=== PATIENT | male | born 1990 | race Caucasian/White ===

== ENCOUNTER 2017-09-26 12:33 | Emergency (ER) ==
[2017-09-26 12:38] VITALS: BP 126/74; TEMP 98.1; BMI 25.7
--- NOTE | 2017-09-26 13:03 | DI ---
EXAM: LEFT FOOT, 3 VIEWS HISTORY: Foot injury, pain FINDINGS: There is a nondisplaced transverse acute fracture across the base of the fifth metatarsal located approximately 1.2 cm distal to the posterior tip of the bone. This probably extends into the most medial articular surface. The joint remains intact. The bone and joint structures of the foot were otherwise unremarkable. IMPRESSION: Fifth metatarsal fracture.
[2017-09-26] MEDS ORDERED: MORPHINE 2 MG/ML SYRINGE IVP STA (13:12)
[2017-09-26] MEDS ORDERED: PHENERGAN 25 MG/ML VIAL IM STA (13:13)
--- NOTE | 2017-09-26 13:16 | ED.PDOC ---
General ED Provider: Dr. BRITNEY FRANK-ER Chief Complaint: Foot Pain/Injury Stated Complaint: i hurt my foot Time Seen by Physician: 12:40 Mode of Arrival: Wheelchair Information Source: Patient Exam Limitations: No limitations Primary Care Provider: CHONG KELLY Nursing and Triage Documentation Reviewed and Agree: Yes Musculoskeletal Complaint Exam - Ankle/Foot Complaint/Exam Location of Injury: Reports: Left, Foot Mechanism of Injury: Reports: Trauma Onset/Duration: 24 hrs Symptoms Are: Reports: Still present Onset of Pain: Reports: Immediate Initial Severity: Mild Current Severity: Moderate Location: Reports: Discrete Character: Reports: Dull, Aching, Stiffness Aggravating: Reports: Movement, Weight bearing, Prolonged standing Able to Bear Weight: No Associated Signs and Symptoms: Reports: Swelling, Bruising. Denies: Redness, Fever, Weakness, Numbness, Tingling Related History: Reports: Similar episode Lower Extremity Findings: Present: Swelling, Ecchymosis, Tenderness, Limited range of motion Achilles Tendon Abnormality: No Tenderness: Present: Midfoot, Metatarsals Differential Diagnosis: Contusion, Closed Fracture Review of Systems - Review Of Systems Constitutional: Reports: No symptoms Eyes: Reports: No symptoms Ears, Nose, Mouth, Throat: Reports: No symptoms Respiratory: Reports: No symptoms Cardiac: Reports: No symptoms GI: Reports: No symptoms : Reports: No symptoms Musculoskeletal: Reports: Muscle pain Skin: Reports: No symptoms Neurological: Reports: No symptoms Endocrine: Reports: No symptoms Hematologic/Lymphatic: Reports: No symptoms All Other Systems: Reviewed and Negative Past Medical History - Past Medical History Previously Healthy: Yes Endocrine: Reports: Unknown Cardiovascular: Reports: Unknown Respiratory: Reports: Unknown Hematological: Reports: Unknown Gastrointestinal: Reports: Unknown Genitourinary: Reports: Unknown Neuro/Psych: Reports: Unknown Musculoskeletal: Reports: Unknown Cancer: Reports: Unknown - Surgical History General Surgical History: Reports: Unknown - Family History Family History: Reports: Unknown - Social History Smoking Status: Current every day smoker Hx Substance Use: No Alcohol Screening: Occasionally - Immunizations Tetanus Shot up to Date: Yes Physical Exam - Physical Exam Appearance: Well-appearing, No pain distress, Well-nourished Pain Distress: Moderate Eyes: TRISTA, EOMI, Conjunctiva clear ENT: Ears normal, Nose normal, Oropharynx normal Neck: Supple Respiratory: Airway patent, Breath sounds clear, Breath sounds equal, Respirations nonlabored Cardiovascular: RRR GI/: Soft, Nontender, No masses, Bowel sounds normal, No Organomegaly Musculoskeletal: Limited ROM Skin: Warm Neurological: Sensation intact Psychiatric: Affect appropriate Interpretation - Radiology Interpretation Radiology Interpretation By: Radiologist Radiology Results: Negative Critical Care Note - Critical Care Note Total Time (mins): 0 Course - Course Orders, Labs, Meds: Orders Category Date Time Status CRUTCHES [ED CRUTCHES] .ONCE EMERGENCY 09/26/17 13:13 Active ED JAMIE WRAP .ONCE EMERGENCY 09/26/17 13:13 Active ED SPLINT APPLICATION .ONCE EMERGENCY 09/26/17 13:13 Active Morphine Sulfate [Morphine 2 mg/ml Syringe] MEDS 09/26/17 13:12 Discontinued 2 mg IVP ONCE STA Promethazine HCl [Phenergan 25 mg/ml Vial] MEDS 09/26/17 13:13 Discontinued 25 mg IM ONCE STA FOOT, LEFT 3 VIEWS Stat RADS 09/26/17 12:41 Completed Medications Generic Name Dose Route Start Last Admin Trade Name Freq PRN Reason Stop Dose Admin Morphine Sulfate 2 mg 09/26/17 13:12 Morphine 2 Mg/Ml Syringe IVP 09/26/17 13:13 ONCE STA Promethazine HCl 25 mg 09/26/17 13:13 Phenergan 25 Mg/Ml Vial IM 09/26/17 13:14 ONCE STA Vital Signs: Temp Pulse Resp BP Pulse Ox 09/26/17 12:34 98.1 F 111 H 18 126/74 96 Departure - Departure Time of Disposition: 13:16 Disposition: HOME SELF-CARE Discharge Problem: Metatarsal fracture Qualifiers: Encounter type: initial encounter Metatarsal bone: fifth Fracture type: closed Fracture alignment: nondisplaced Laterality: left Qualified Code(s): S92.355A - Nondisplaced fracture of fifth metatarsal bone, left foot, initial encounter for closed fracture Discharge Problem: (Ruled Out): Fracture of fifth metacarpal bone Instructions: Foot Fracture in Adults (ED) Condition: Good Pt referred to PMD for follow-up: Yes Additional Instructions: stay in jamie, cast shoe and crutches---norco 7.5mg q 4hrs prn pain #15--f/u ortho [facility] thursday--nonweightbearing Allergies/Adverse Reactions: Allergies No Known Allergies Allergy (Unverified 09/26/17 12:38) Home Medications: Ambulatory Orders Amlodipine Besylate 5 mg PO DAILY 09/26/17 Venlafaxine HCl [Effexor] 75 mg PO DAILY 09/26/17 Disposition Discussed With: Patient, Family
== END 2017-09-26 13:58 | disposition home or self-care (01) ==
LOC: ED 12:33
DX: S92.355A Nondisplaced fracture of fifth metatarsal bone, left foot, initial encounter for closed fracture (principal); F17.210 Nicotine dependence, cigarettes, uncomplicated
CPT/HCPCS: 96372; 99282

== ENCOUNTER 2022-04-28 10:26 | Inpatient (IN) ==
[2022-04-28] MEDS ORDERED: ATIVAN IVP STA (10:45)
[2022-04-28] MEDS ORDERED: ZOFRAN 4 MG/2 ML IVP STA (10:45)
[2022-04-28] MEDS ORDERED: SODIUM CHLORIDE 1,000 ML IV STA ×2 (10:45→13:36)
--- NOTE | 2022-04-28 10:45 | ED.PDOC ---
General ED Provider: Dr. AMBREEN MENDOZA MD Chief Complaint: Nausea/Vomiting Stated Complaint: Patient with a history of alcohol use disorder. He reports that he currently drinks once a week. He last drank two days ago and consumed one fifth of vodka. Patient subsequently developed nausea and emesis. He presents now with tremulousness. He also complains of bilateral leg pain related to a recent ground level fall. Denies fever, chills, cough, dyspnea, chest pain, abdominal pain, melena, constipation, diarrhea or hematochezia. Patient's mother reports that he drinks alcohol daily and that he has nausea and emesis on a daily basis. Time Seen by Provider: 04/28/22 10:44 Mode of Arrival: Ambulance Information Source: Patient and EMT Primary Care Provider: GINA TRACY MD Nursing and Triage Documentation Reviewed and Agree: Yes Does patient meet sepsis criteria?: No System Inflammatory Response Syndrome: Not Applicable Sepsis Protocol: For patient's 13 years and over: Temp is 96.8 and below OR 101 and greater Pulse >90 BPM Resp >20/minute Acutely Altered Mental Status Are patient's symptoms suggestive of a new infection, such as: -Pneumonia -Skin, Soft Tissue -Endocarditis -UTI -Bone, Joint Infection -Implantable Device -Acute Abdominal Infection -Wound Infection -Meningitis -Blood Stream Catheter Infection -Unknown Miscellaneous Complaint Exam Complex/Multi-System Complaint/Exam Onset/Duration: 1-2 days nausea, emesis and tremulousness Symptoms Are: Still present Initial Severity: Mild Current Severity: Mild Aggravating: none Alleviating: none Associated Signs and Symptoms: Reports Nausea and Vomiting Respiratory Distress: None JVD Present: No Tachypnea Present: No Stridor Present: No Abdominal Findings: Present Normal findings Meningeal Signs Positive: No Focal Weakness: Present None Focal Sensory Loss: Present None Gait: Unsteady Gag Reflex Present: Yes Joint Swelling Present: No In-Dwelling Device Present: No Review of Systems Review Of Systems Constitutional: Reports No symptoms Eyes: Reports No symptoms Ears, Nose, Mouth, Throat: Reports No symptoms Respiratory: Reports No symptoms Cardiac: Reports No symptoms GI: Reports Nausea and Vomiting : Reports No symptoms Skin: Reports No symptoms Neurological: Reports Other (tremulousness) Endocrine: Reports No symptoms Hematologic/Lymphatic: Reports No symptoms All Other Systems: Reviewed and Negative [facility] Medical History Anemia Elevated liver enzymes Hypertension Insomnia Family History PATERNAL GRANDFATHER Heart disease Hypertension Heart attack BROTHER Depression BROTHER Depression MATERNAL GRANDMOTHER Depression Mother Depression Social History Smoking and tobacco status: Current every day smoker Tobacco type: cigarettes Smoking packs per day: 0.5 Years smoked: 13 Quit status: has quit before Alcohol intake: current Alcohol intake frequency: holidays/special occasions only Substance use type: does not use Counseling given: No Counseling provided: none Linda/alevism: NONE Special linda needs: No Agree to transfusion: Yes Adopted: No Caregiver/support person: No Foster care: No Household members: none and other Housing: apartment Marital status: S SINGLE Daycare: no daycare Number of children: 0 Number of grandchildren: 0 Highest education level completed: some college, no degree Financial difficulty paying for basics: not very hard service: Yes [facility]: No Current occupational status: previously employed Current occupational exposures/hazards: No Previous occupational history: cook [employer] Pets and animals: No Leisure activites: exercise and games History of recent travel: Yes (moved back here from [place] ) Sexually active: Yes Do you think of yourself as: straight/heterosexual Current gender identity: male Seatbelt use: always Helmet use: No Drives intoxicated or rides with intoxicated auto parts delivery driver: No Water heater temperature set < 120 degrees: Yes Working smoke detector in home: Yes Fire extinguisher in home: No Carbon monoxide detector in home: No Firearms in home: No Physical Exam Physical Exam Appearance: Reports Ill-appearing, No pain distress, Thin and Other (Patient unkempt and appears to be chronically ill. He does exhibit some tremulousness of both hands.) Ill-appearing: Mild Pain Distress: None Eyes: Reports TRISTA and EOMI ENT: Reports Nose normal and Oropharynx normal Neck: Supple Respiratory: Reports Airway patent, Breath sounds clear and Breath sounds equal Cardiovascular: Reports RRR, No rub and No murmur GI/: Reports Soft, Nontender, No masses and Bowel sounds normal Musculoskeletal: Reports Normal strength, ROM intact, No edema and Other (ecchymotic area right pretibial area) Skin: Reports Warm, Dry and Normal color Neurological: Reports Sensation intact, Motor intact, Cranial nerves intact, Alert and Oriented Psychiatric: Reports Affect appropriate and Mood appropriate Interpretation Radiology Interpretation Radiology Interpretation By: Radiologist Exam Interpreted: CT Scan (CT head with no acute intracranial abnormality) Re-Evaluation Re-Evaluation Time of Re-Evaluation: 12:29 Status: Improved (Patient feeling much better. He is tolerating PO fluids) Vital Signs Stable: Yes Pain Level: none Appearance: NAD Critical Care Note Critical Care Note Total Critical Care Time (mins): 0 Course Course Hematology/Chemistry: 04/28/22 10:59 04/28/22 10:59 Orders, Labs, Meds: Lab Review 04/28/22 04/28/22 10:59 10:59 WBC 4.59 RBC 3.39 L Hgb 11.7 L Hct 34.3 L MCV 101.2 H MCH 34.5 H MCHC 34.1 RDW Coeff of Venessa 14.0 Plt Count 103 L Immature Gran % (Auto) 0.2 Neut % (Auto) 84.5 H Lymph % (Auto) 7.4 L Ashley % (Auto) 6.8 Eos % (Auto) 0.4 Baso % (Auto) 0.7 Neut # (Auto) 3.9 Lymph # (Auto) 0.3 L Ashley # (Auto) 0.3 L Eos # (Auto) 0.0 Baso # (Auto) 0.0 Immature Gran # (Auto) 0.0 Sodium 130.5 L Potassium 3.67 Chloride 94.9 L Carbon Dioxide 17.8 L Anion Gap 21.47 BUN 4.9 L Creatinine 0.68 Estimated GFR (MDRD) 137.00 BUN/Creatinine Ratio 7.20 Glucose 106.2 H Calcium 8.86 Total Bilirubin 1.52 H AST 100.1 H ALT 55.2 H Alkaline Phosphatase 87.2 Total Protein 7.25 Albumin 4.65 Globulin 2.60 Albumin/Globulin Ratio 1.78 Plasma/Serum Alcohol < 10.0 Orders Category Date Time Status Saline Lock [ED IV/MEDIPORT/POWERPORT] .ONCE EMERGENCY 04/28/22 10:45 Active ALCOHOL LEVEL [BLOOD ALCOHOL] Stat LAB 04/28/22 10:59 Completed CBC W/ AUTO DIFF Stat LAB 04/28/22 10:59 Completed CMP [COMPREHENSIVE METABOLIC PANEL] Stat LAB 04/28/22 10:59 Completed URINE DRUG SCREEN (RAPID FOR ED) [DRUG SCREEN, URINE, LAB 04/28/22 10:47 Uncollected RAPID] Stat 0.9 % Sodium Chloride [Saline Flush] MEDS 04/28/22 10:45 Active 1 syr IVF PRN PRN Lorazepam [Ativan] MEDS 04/28/22 10:45 Discontinued 2 mg IVP ONCE STA Ondansetron HCl/Pf [Zofran 4 mg/2 ml] MEDS 04/28/22 10:45 Discontinued 8 mg IVP ONCE STA Sodium Chloride 0.9% [Sodium Chloride] 1,000 ml MEDS 04/28/22 10:[address] HEAD W/O CONTRAST Stat RADS 04/28/22 10:45 Completed Medications Generic Name Dose Route Start Last Admin Trade Name Freq PRN Reason Stop Dose Admin Sodium Chloride 1 syr 04/28/22 10:45 04/28/22 11:00 0.9% Sodium Chloride 10 Ml Disp.Syrin IVF 1 syr PRN PRN Administration To flush IV Discontinued Medications Generic Name Dose Route Start Last Admin Trade Name Freq PRN Reason Stop Dose Admin Sodium Chloride 1,000 mls @ 1,000 mls/hr 04/28/22 10:45 04/28/22 11:00 Sodium Chloride IV 04/28/22 11:44 1,000 mls/hr BOLUS STA Administration Lorazepam 2 mg 04/28/22 10:45 04/28/22 11:00 Lorazepam Inj 2 Mg/Ml Vial IVP 04/28/22 10:46 2 mg ONCE STA Administration Ondansetron HCl 8 mg 04/28/22 10:45 04/28/22 10:56 Ondansetron Hcl/Pf 4 Mg/2 Ml Sdv IVP 04/28/22 10:46 Not Given ONCE STA Vital Signs: Temp Pulse Resp BP Pulse Ox 04/28/22 10:26 98.1 F 83 20 141/99 H 99 Discharge Plan Discharge Patient Disposition: HOME SELF-CARE Discharge Problem: Alcohol use disorder, severe, dependence, Nausea & vomiting Instructions: Abuse of Alcohol (ED), Acute Nausea and Vomiting (ED), Alcohol Withdrawal (ED) Prescriptions: New ondansetron 4 mg tablet,disintegrating 4 mg PO Q8H Qty: 21 0RF No Action amlodipine 10 mg tablet See Rx Instructions .ROUTE .COMPLEX Qty: 30 2RF Dose Instruction: TAKE ONE TABLET DAILY GENERIC FOR NORVASC Rx Instructions: TAKE ONE TABLET DAILY GENERIC FOR NORVASC multivitamin [Multiple Vitamins] Tablet 1 tab PO QDAY 0RF cholecalciferol (vitamin D3) 1,250 mcg (50,000 unit) capsule 50,000 unit PO QWEEK Qty: 10 0RF thiamine HCl (vitamin B1) 100 mg tablet 100 mg PO QDAY Qty: 30 6RF ibuprofen 600 mg tablet 600 mg PO TID PRN (Reason: fever or pain) Qty: 90 1RF acamprosate 333 mg tablet,delayed release (DR/EC) 666 mg PO BID Qty: 120 0RF Rx Instructions: administer with mid-day and evening meals benztropine 1 mg tablet 1 mg PO QHS Qty: 30 0RF quetiapine 100 mg tablet 50 - 100 mg PO QHS Qty: 30 0RF venlafaxine 75 mg capsule,extended release 24hr 75 mg PO QAM Qty: 30 0RF trazodone 150 mg tablet 50 - 150 mg PO QHS PRN (Reason: insomnia) Qty: 30 0RF hydroxyzine HCl 25 mg tablet 25 mg PO TID PRN (Reason: anxiety) Qty: 90 0RF ED Provider: AMBREEN MENDOZA Condition: Stable Physician Progress Note: []
[2022-04-28 11:10] LABS: BASOPHILS % (AUTO) 0.7 % (0.0-3.0); EOSINOPHILS % (AUTO) 0.4 % (0.0-7.0); HEMATOCRIT 34.3 % (42.0-52.0); HEMOGLOBIN 11.7 g/dl (14.0-18.0); IMMATURE GRANULOCYTE % (AUTO) 0.2 % (0.0-5.0); LYMPHOCYTES # (AUTO) 0.3 K/uL (0.60-3.4); LYMPHOCYTES % (AUTO) 7.4 (10.0-50.0); MEAN CORPUSCULAR HEMOGLOBIN 34.5 pg (27.0-31.0); MEAN CORPUSCULAR HGB CONC 34.1 (31.8-35.4); MEAN CORPUSCULAR VOLUME 101.2 fl (80.0-94.0); MONOCYTES # (AUTO) 0.3 K/uL (0.4-2.0); MONOCYTES % (AUTO) 6.8 (0-10); NEUTROPHILS # (AUTO) 3.9 K/ul (2.0-6.9); NEUTROPHILS % (AUTO) 84.5 % (42.2-75.2); PLATELET COUNT 103 10^3/uL (140-440); RED BLOOD COUNT 3.39 10^6/ul (4.70-6.10); WHITE BLOOD COUNT 4.59 K/ul (4.2-10.2)
[2022-04-28 11:23] LABS: ALANINE AMINOTRANSFERASE 55.2 U/L (0-50); ALBUMIN 4.65 g/dL (3.5-5.0); ALKALINE PHOSPHATASE 87.2 U/L (38-126); ASPARTATE AMINO TRANSFERASE 100.1 U/L (17-59); BILIRUBIN,TOTAL 1.52 mg/dL (0.2-1.3); BLOOD UREA NITROGEN 4.9 mg/dL (9-20); CALCIUM 8.86 mg/dL (8.4-10.2); CARBON DIOXIDE 17.8 mmol/L (22-30.0); CHLORIDE 94.9 mmol/L (98-107); CREATININE 0.68 mg/dL (0.60-1.10); GLUCOSE 106.2 mg/dL (74-106); POTASSIUM 3.67 mmol/L (3.5-5.1); SODIUM 130.5 mmol/L (134.5-145); TOTAL PROTEIN 7.25 g/dL (6.3-8.2)
[2022-04-28 11:24] LABS: BLOOD ALCOHOL < 10.0 mg/dL (0.0-50.0)
--- NOTE | 2022-04-28 12:01 | CT ---
EXAM: CT head without contrast. HISTORY: Altered mental status. COMPARISON: 04/10/2021. TECHNIQUE: Multiple axial images of the brain were obtained from the skull base through the vertex w ithout intravenous contrast. Multiplanar reformats were provided. FINDINGS: There is no intracranial hemorrhage or extraaxial collection. 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 The carrera-white differentiation i s maintained without evidence for acute large vascular territory infarction. The cortical sulci and basal cisterns are well visualized. There is no hydrocephalus, mass effect, or midline shift. Mild left maxillary sinus mucosal thickening. Otherwise, the paranasal sinuses and mastoid air cells are clear. The calvarium is intact. Since the prior study, there has been no significant interval herrera e. IMPRESSION: No acute intracranial abnormality. All CT scans are performed using dose optimization techniques as appropriate to the performed exam an d include at least one of the following: Automated exposure control, adjustment of the mA and/or kV according t o size, and the use of iterative reconstruction technique.
[2022-04-28] MEDS ORDERED: TYLENOL PO STA (13:49)
--- NOTE | 2022-04-28 15:13 | PCM ---
Chief Complaint Chief Complaint: weakness, tremulousness, nausea, emesis History of Present Illness History of Present Illness: Patient has alcohol use disorder and drinks alcohol daily. He last drank 2 days ago. Patient presents now with weakness, tremulousness, nausea and emesis. Denies fever, chills, cough, dyspnea, abdominal pain, melena, hematochezia, diarrhea, hematemesis or chest pain. Review of Systems Constitutional: Reports Weakness Eyes: Reports No symptoms Ears: Reports No symptoms Nose: Reports No symptoms Throat: Reports No symptoms Mouth: Reports No symptoms Respiratory: Reports No symptoms Cardiovascular: Reports No symptoms Gastrointestinal: Reports Nausea and Vomiting Genitourinary: Reports No symptoms Neurological: Reports Other (tremulousness) Musculoskeletal: Reports No symptoms Skin: Reports No symptoms Immunology: Reports No symptoms Hematology: Reports No symptoms Endocrine: Reports No symptoms Psychiatric: Reports No symptoms Habits: Reports Substance use and Alcohol use Allergies Allergies Allergy/AdvReac Type Severity Reaction Status Date / Time No Known Allergies Allergy unknown Uncoded 04/28/22 10:39 [facility] Medical History Anemia Elevated liver enzymes Hypertension Insomnia Family History PATERNAL GRANDFATHER Heart disease Hypertension Heart attack BROTHER Depression BROTHER Depression MATERNAL GRANDMOTHER Depression Mother Depression Social History Smoking and tobacco status: Current every day smoker Tobacco type: cigarettes Smoking packs per day: 0.5 Years smoked: 13 Quit status: has quit before Alcohol intake: current Alcohol intake frequency: holidays/special occasions only Substance use type: does not use Counseling given: No Counseling provided: none Linda/mosque: NONE Special linda needs: No Agree to transfusion: Yes Adopted: No Caregiver/support person: No Foster care: No Household members: none and other Housing: apartment Marital status: S SINGLE Daycare: no daycare Number of children: 0 Number of grandchildren: 0 Highest education level completed: some college, no degree Financial difficulty paying for basics: not very hard service: Yes penitentiary: No Current occupational status: previously employed Current occupational exposures/hazards: No Previous occupational history: cook at [employer] Pets and animals: No Leisure activites: exercise and games History of recent travel: Yes (moved back here from [place] ) Sexually active: Yes Do you think of yourself as: straight/heterosexual Current gender identity: male Seatbelt use: always Helmet use: No Drives intoxicated or rides with intoxicated driver education road instructor: No Water heater temperature set < 120 degrees: Yes Working smoke detector in home: Yes Fire extinguisher in home: No Carbon monoxide detector in home: No Firearms in home: No Medications Medications: Medications Generic Name Dose Route Start Last Admin Trade Name Freq PRN Reason Stop Dose Admin Amlodipine Besylate 10 mg 04/29/22 09:00 Amlodipine Besylate 5 Mg Tablet PO QAM PAM Chlordiazepoxide HCl 25 mg 04/28/22 15:00 Chlordiazepoxide Hcl 25 Mg Capsule PO Q6H PAM Sodium Chloride 1,000 mls @ 150 mls/hr 04/28/22 15:00 Sodium Chloride IV .Q6H40M PAM Lorazepam 1 mg 04/28/22 14:59 Lorazepam 1 Mg Tablet PO Q4H PRN Agitation Sodium Chloride 1 syr 04/28/22 10:45 04/28/22 11:00 0.9% Sodium Chloride 10 Ml Disp.Syrin IVF 1 syr PRN PRN Administration To flush IV Venlafaxine HCl 75 mg 04/29/22 09:00 Venlafaxine Hcl 75 Mg Cap.Er.24h PO DAILY PAM Body Composition Height: 5 ft 11 in Weight: 85.5 kg Body Mass Index (BMI): 26.2 Vital Signs Temperature: 98.1 F Pulse Rate: 83 Respiratory Rate: 20 Blood Pressure: 141/99 O2 Sat by Pulse Oximetry: 99 Physical Examination Appearance: Reports Ill-appearing, No pain distress, Thin and Other (Patient is unkempt. He is alert, but somewhat confused. Patient is tremulous. He is in NAD. ) Ill-appearing: Moderate Pain Distress: None Eyes: Reports EOMI and Conjunctiva clear ENT: Reports Nose normal and Oropharynx normal Neck: Supple Respiratory: Reports Airway patent, Breath sounds clear and Breath sounds equal Cardiovascular: Reports Pulses normal, No rub, No murmur and Tachycardia GI/: Reports Soft, Nontender, No masses, Bowel sounds normal and No Organomegaly Musculoskeletal: Reports Normal strength, ROM intact and No edema Skin: Reports Warm, Dry and Normal color Neurological: Reports Sensation intact, Motor intact, Cranial nerves intact, Alert and Oriented Psychiatric: Reports Affect appropriate and Mood appropriate Lab/Tests/Diagnostic Imaging Lab/Tests/Diagnostic Imaging: Lab Review 04/28/22 04/28/22 10:59 10:59 WBC 4.59 RBC 3.39 L Hgb 11.7 L Hct 34.3 L MCV 101.2 H MCH 34.5 H MCHC 34.1 RDW Coeff of Venessa 14.0 Plt Count 103 L Immature Gran % (Auto) 0.2 Neut % (Auto) 84.5 H Lymph % (Auto) 7.4 L [place] % (Auto) 6.8 Eos % (Auto) 0.4 Baso % (Auto) 0.7 Neut # (Auto) 3.9 Lymph # (Auto) 0.3 L [place] # (Auto) 0.3 L Eos # (Auto) 0.0 Baso # (Auto) 0.0 Immature Gran # (Auto) 0.0 Sodium 130.5 L Potassium 3.67 Chloride 94.9 L Carbon Dioxide 17.8 L Anion Gap 21.47 BUN 4.9 L Creatinine 0.68 Estimated GFR (MDRD) 137.00 BUN/Creatinine Ratio 7.20 Glucose 106.2 H Calcium 8.86 Total Bilirubin 1.52 H AST 100.1 H ALT 55.2 H Alkaline Phosphatase 87.2 Total Protein 7.25 Albumin 4.65 Globulin 2.60 Albumin/Globulin Ratio 1.78 Plasma/Serum Alcohol < 10.0 Orders Category Date Time Status PLACE PATIENT OBSERVATION .TO [facility] (MONITORED BED ADMISSION 04/28/22 14:59 Active ) ACTIVITY .Up With Assistance CARE 04/28/22 14:59 Active INTAKE & OUTPUT Q8HR CARE 04/28/22 14:59 Active IP: INSERT SALINE LOCK ONCE CARE 04/28/22 14:59 Active TELEMETRY MONITORING TELE CARE 04/28/22 14:59 Active VITAL SIGNS Q4HR CARE 04/28/22 15:00 Active VITAL SIGNS Q8HR CARE 04/28/22 14:59 Active REGULAR DIET DIETARY 04/28/22 Dinner Ordered Saline Lock [ED IV/MEDIPORT/POWERPORT] .ONCE EMERGENCY 04/28/22 10:45 Active ALCOHOL LEVEL [BLOOD ALCOHOL] Stat LAB 04/28/22 10:59 Completed CBC W/ AUTO DIFF DAILY@0600 LAB 04/29/22 06:00 Ordered CBC W/ AUTO DIFF DAILY@0600 LAB 04/30/22 06:00 Ordered CBC W/ AUTO DIFF Stat LAB 04/28/22 10:59 Completed CMP [COMPREHENSIVE METABOLIC PANEL] Stat LAB 04/28/22 10:59 Completed COMPREHENSIVE METABOLIC PANEL DAILY@0600 LAB 04/29/22 06:00 Ordered COMPREHENSIVE METABOLIC PANEL DAILY@0600 LAB 04/30/22 06:00 Ordered COVID [SARS COV-2 RNA RAPID GERA] Stat LAB 04/28/22 Ordered URINE DRUG SCREEN (RAPID FOR ED) [DRUG SCREEN, URINE, LAB 04/28/22 10:47 Uncollected RAPID] Stat 0.9 % Sodium Chloride [Saline Flush] MEDS 04/28/22 10:45 Active 1 syr IVF PRN PRN Acetaminophen [Tylenol] MEDS 04/28/22 13:49 Discontinued 1,000 mg PO ONCE STA Amlodipine Besylate [Norvasc] MEDS 04/29/22 09:00 Ordered 10 mg PO QAM Chlordiazepoxide HCl [Librium] MEDS 04/28/22 15:00 Ordered 25 mg PO Q6H Lorazepam [Ativan] MEDS 04/28/22 14:59 Ordered 1 mg PO Q4H PRN Lorazepam [Ativan] MEDS 04/28/22 10:45 Discontinued 2 mg IVP ONCE STA Ondansetron HCl/Pf [Zofran 4 mg/2 ml] MEDS 04/28/22 10:45 Discontinued 8 mg IVP ONCE STA Sodium Chloride 0.9% [Sodium Chloride] 1,000 ml MEDS 04/28/22 15:00 Ordered IV 150 mls/hr Sodium Chloride 0.9% [Sodium Chloride] 1,000 ml MEDS 04/28/22 10:45 Discontinued IV BOLUS Sodium Chloride 0.9% [Sodium Chloride] 1,000 ml MEDS 04/28/22 13:36 Discontinued IV BOLUS Venlafaxine HCl [Effexor Xr] MEDS 04/29/22 09:00 Ordered 75 mg PO DAILY RESUSCITATION STATUS Routine OTHERS 04/28/22 14:[address] HEAD W/O CONTRAST Stat RADS 04/28/22 10:45 Completed Medications Generic Name Dose Route Start Last Admin Trade Name Freq PRN Reason Stop Dose Admin Amlodipine Besylate 10 mg 04/29/22 09:00 Amlodipine Besylate 5 Mg Tablet PO QAM PAM Chlordiazepoxide HCl 25 mg 04/28/22 15:00 Chlordiazepoxide Hcl 25 Mg Capsule PO Q6H PAM Sodium Chloride 1,000 mls @ 150 mls/hr 04/28/22 15:00 Sodium Chloride IV .Q6H40M PAM Lorazepam 1 mg 04/28/22 14:59 Lorazepam 1 Mg Tablet PO Q4H PRN Agitation Sodium Chloride 1 syr 04/28/22 10:45 04/28/22 11:00 0.9% Sodium Chloride 10 Ml Disp.Syrin IVF 1 syr PRN PRN Administration To flush IV Venlafaxine HCl 75 mg 04/29/22 09:00 Venlafaxine Hcl 75 Mg Cap.Er.24h PO DAILY PAM Discontinued Medications Generic Name Dose Route Start Last Admin Trade Name Freq PRN Reason Stop Dose Admin Acetaminophen 1,000 mg 04/28/22 13:49 04/28/22 13:53 Acetaminophen 500 Mg Tablet PO 04/28/22 13:50 1,000 mg ONCE STA Administration Sodium Chloride 1,000 mls @ 1,000 mls/hr 04/28/22 10:45 04/28/22 11:00 Sodium Chloride IV 04/28/22 11:44 1,000 mls/hr BOLUS STA Administration Sodium Chloride 1,000 mls @ 1,000 mls/hr 04/28/22 13:36 04/28/22 13:44 Sodium Chloride IV 04/28/22 14:35 1,000 mls/hr BOLUS STA Administration Lorazepam 2 mg 04/28/22 10:45 04/28/22 11:00 Lorazepam Inj 2 Mg/Ml Vial IVP 04/28/22 10:46 2 mg ONCE STA Administration Ondansetron HCl 8 mg 04/28/22 10:45 04/28/22 10:56 Ondansetron Hcl/Pf 4 Mg/2 Ml Sdv IVP 04/28/22 10:46 Not Given ONCE STA Assessment (1) Alcohol use disorder, severe, dependence: Status: Acute Code(s): F10.20 - Alcohol dependence, uncomplicated SNOMED Code(s): 346589932 (2) Nausea & vomiting: Status: Acute Code(s): R11.2 - Nausea with vomiting, unspecified SNOMED Code(s): 37842969 (3) Alcohol withdrawal: Status: Acute Code(s): F10.239 - Alcohol dependence with withdrawal, unspecified SNOMED Code(s): 135241421 Plan Plan: Patient will receive IV fluid hydration and librium/ativan for withdrawal symptoms. Repeat labs will be drawn in the AM.
[2022-04-28] MEDS: SODIUM CHLORIDE 1,000 ML IV SCH (15:40)
[2022-04-28 17:14] VITALS: BMI 28.2
[2022-04-28 17:35] LABS: AMPHETAMINE SCREEN,URINE NEGATIVE (NEGATIVE); BARBITURATE SCREEN,URINE NEGATIVE (NEGATIVE); BENZODIAZEPINES SCREEN,URINE POSITIVE (NEGATIVE); CANNABINOID SCREEN,URINE NEGATIVE (NEGATIVE); COCAIN SCREEN,URINE NEGATIVE (NEGATIVE); METHADONE URINE SCREEN NEGATIVE (NEGATIVE); METHAMPHETAMINES SCREEN,URINE NEGATIVE (NEGATIVE); OPIATE SCREEN,URINE NEGATIVE (NEGATIVE); OXYCODONE URINE SCREEN NEGATIVE (NEGATIVE); PHENCYCLIDINE SCREEN,URINE NEGATIVE (NEGATIVE); PROPOXYPHENE URINE SCREEN NEGATIVE (NEGATIVE); TRICYCLIC ANTIDEPRESSANTS URIN NEGATIVE (NEGATIVE)
[2022-04-28] MEDS: LIBRIUM PO SCH ×2 (17:41→22:03)
[2022-04-28] MEDS: ATIVAN PO PRN (20:46)
[2022-04-28] MEDS: TYLENOL PO PRN (20:48)
[2022-04-29] MEDS: SODIUM CHLORIDE 1,000 ML IV SCH ×3 (00:30→22:42)
[2022-04-29] MEDS: LIBRIUM PO SCH ×4 (02:54→20:14)
[2022-04-29 05:13] LABS: BASOPHILS % (AUTO) 0.8 % (0.0-3.0); EOSINOPHILS # (AUTO) 0.1 K/ul (0.0-0.7); EOSINOPHILS % (AUTO) 2.3 % (0.0-7.0); HEMATOCRIT 29.9 % (42.0-52.0); HEMOGLOBIN 10.3 g/dl (14.0-18.0); IMMATURE GRANULOCYTE % (AUTO) 0.4 % (0.0-5.0); LYMPHOCYTES # (AUTO) 0.7 K/uL (0.60-3.4); LYMPHOCYTES % (AUTO) 26.8 (10.0-50.0); MEAN CORPUSCULAR HEMOGLOBIN 34.6 pg (27.0-31.0); MEAN CORPUSCULAR HGB CONC 34.4 (31.8-35.4); MEAN CORPUSCULAR VOLUME 100.3 fl (80.0-94.0); MONOCYTES # (AUTO) 0.3 K/uL (0.4-2.0); MONOCYTES % (AUTO) 11.1 (0-10); NEUTROPHILS # (AUTO) 1.5 K/ul (2.0-6.9); NEUTROPHILS % (AUTO) 58.6 % (42.2-75.2); PLATELET COUNT 73 10^3/uL (140-440); RDW COEFFICIENT OF VARIATION 13.7 % (11.6-14.8); RED BLOOD COUNT 2.98 10^6/ul (4.70-6.10); WHITE BLOOD COUNT 2.61 K/ul (4.2-10.2)
[2022-04-29 05:28] LABS: ALANINE AMINOTRANSFERASE 43.9 U/L (0-50); ALBUMIN 3.38 g/dL (3.5-5.0); ALKALINE PHOSPHATASE 65.2 U/L (38-126); ASPARTATE AMINO TRANSFERASE 112.5 U/L (17-59); BILIRUBIN,TOTAL 0.79 mg/dL (0.2-1.3); BLOOD UREA NITROGEN 2.3 mg/dL (9-20); CALCIUM 7.74 mg/dL (8.4-10.2); CHLORIDE 104.3 mmol/L (98-107); CREATININE 0.56 mg/dL (0.60-1.10); GLUCOSE 109.7 mg/dL (74-106); POTASSIUM 2.95 mmol/L (3.5-5.1); SODIUM 134.3 mmol/L (134.5-145); TOTAL PROTEIN 5.96 g/dL (6.3-8.2)
[2022-04-29] MEDS: EFFEXOR XR PO SCH (08:38)
[2022-04-29] MEDS: NORVASC PO SCH (08:39)
[2022-04-29] MEDS ORDERED: POTASSIUM CHLORIDE 20 MEQ/100 ML PREMIX 40 MEQ/200 ML BAG IV STA (09:20)
[2022-04-29] MEDS: ATIVAN PO PRN (10:53)
[2022-04-29] MEDS: K-DUR PO SCH ×2 (12:53→16:51)
[2022-04-29] MEDS: NICODERM 21 MG TD SCH (12:53)
[2022-04-29] MEDS: NYSTATIN ORAL SUSP PO SCH ×3 (12:57→20:14)
--- NOTE | 2022-04-29 21:00 | PCM.PROG ---
Date Seen by Provider: 04/29/22 Time Seen by Provider: 11:00 Subjective: Patient states that he feels better but still has tremors. He would like a nicotine patch. Denies any pain Objective: Vitals: T=97.3 F, P=100, R=16, NI=072/97, SPO2=99 HEENT: [mucus membraines are moist] Neck: [Supple no JVD] Lungs: [Clinically clear bilaterally ] CVS: [Resgular S1 and S2 only ] Abdomen: [Soft Not tender to palpation ] Extremities: [ no edema, multiple bruises on the extremities from falls] Neurological: [Restring Tremor. asterixis noted on the upper extremities ] Skin: [Warm Dry, Contusions on the lower extremities. Right IV site swelling and bruising ] Lab/Tests/Diagnostic Imaging: [ Laboratory Results - last 24 hr 04/29/22 04/29/22 04:30 04:30 WBC 2.61 L RBC 2.98 L Hgb 10.3 L Hct 29.9 L MCV 100.3 H MCH 34.6 H MCHC 34.4 RDW Coeff of Venessa 13.7 Plt Count 73 L Immature Gran % (Auto) 0.4 Neut % (Auto) 58.6 Lymph % (Auto) 26.8 [place] % (Auto) 11.1 H Eos % (Auto) 2.3 Baso % (Auto) 0.8 Neut # (Auto) 1.5 L Lymph # (Auto) 0.7 [place] # (Auto) 0.3 L Eos # (Auto) 0.1 Baso # (Auto) 0.0 Immature Gran # (Auto) 0.0 Sodium 134.3 L Potassium 2.95 L Chloride 104.3 Carbon Dioxide 22.0 Anion Gap 10.95 BUN 2.3 L Creatinine 0.56 L Estimated GFR (MDRD) 171.00 BUN/Creatinine Ratio 4.10 Glucose 109.7 H Calcium 7.74 L Total Bilirubin 0.79 AST 112.5 H ALT 43.9 Alkaline Phosphatase 65.2 Total Protein 5.96 L Albumin 3.38 L Globulin 2.58 Albumin/Globulin Ratio 1.31 ] (1) Hypokalemia: Status: Acute Code(s): E87.6 - Hypokalemia SNOMED Code(s): 94336826 Assessment: Will continue to replace IV and PO, follow labs including magnesium (2) Alcohol use disorder, severe, dependence: Status: Acute Code(s): F10.20 - Alcohol dependence, uncomplicated SNOMED Code(s): 259430187 Assessment: Discussed at length regarding his friends that drink to ask them to help him or at least try to find new friends. Encouraged him to accept he has a problem and get help from his psychologist and psychiatrist who he has not see for a while. He states that he was suppsed to be taking and medication that was to help with his abuse but stopped taking it. Encourage him to join AA. (3) Thrombophlebitis of right upper extremity: Status: Acute Code(s): I80.8 - Phlebitis and thrombophlebitis of other sites SNOMED Code(s): 35404643595884509 Assessment: Better with Application of ICE (4) Nausea & vomiting: Status: Acute Code(s): R11.2 - Nausea with vomiting, unspecified SNOMED Code(s): 90990819 Assessment: improved tolerating diet well (5) Alcohol withdrawal: Status: Acute Code(s): F10.239 - Alcohol dependence with withdrawal, unspecified SNOMED Code(s): 927772152 (6) Tobacco dependence: Status: Acute Code(s): F17.200 - Nicotine dependence, unspecified, uncomplicated SNOMED Code(s): 10389498 Assessment: will order Nicotine patch Plan: Convert to Full admission as he is still in withdraw and has severe hypokalemia
[2022-04-30] MEDS: ATIVAN PO PRN ×3 (00:07→20:08)
[2022-04-30] MEDS: TYLENOL PO PRN (00:07)
[2022-04-30] MEDS: LIBRIUM PO SCH ×4 (02:33→20:14)
[2022-04-30 05:13] LABS: BASOPHILS % (AUTO) 0.6 % (0.0-3.0); EOSINOPHILS # (AUTO) 0.1 K/ul (0.0-0.7); HEMATOCRIT 33.4 % (42.0-52.0); HEMOGLOBIN 11.2 g/dl (14.0-18.0); IMMATURE GRANULOCYTE % (AUTO) 0.3 % (0.0-5.0); LYMPHOCYTES # (AUTO) 0.9 K/uL (0.60-3.4); LYMPHOCYTES % (AUTO) 26.9 (10.0-50.0); MEAN CORPUSCULAR HEMOGLOBIN 34.3 pg (27.0-31.0); MEAN CORPUSCULAR HGB CONC 33.5 (31.8-35.4); MEAN CORPUSCULAR VOLUME 102.1 fl (80.0-94.0); MONOCYTES # (AUTO) 0.4 K/uL (0.4-2.0); MONOCYTES % (AUTO) 12.1 (0-10); NEUTROPHILS # (AUTO) 1.9 K/ul (2.0-6.9); NEUTROPHILS % (AUTO) 57.1 % (42.2-75.2); PLATELET COUNT 90 10^3/uL (140-440); RDW COEFFICIENT OF VARIATION 13.3 % (11.6-14.8); RED BLOOD COUNT 3.27 10^6/ul (4.70-6.10); WHITE BLOOD COUNT 3.38 K/ul (4.2-10.2)
[2022-04-30 05:27] LABS: ALANINE AMINOTRANSFERASE 49.7 U/L (0-50); ALBUMIN 3.97 g/dL (3.5-5.0); ALKALINE PHOSPHATASE 82.2 U/L (38-126); ASPARTATE AMINO TRANSFERASE 83.5 U/L (17-59); BILIRUBIN,TOTAL 0.57 mg/dL (0.2-1.3); CALCIUM 8.41 mg/dL (8.4-10.2); CARBON DIOXIDE 21.7 mmol/L (22-30.0); CHLORIDE 106.1 mmol/L (98-107); CREATININE 0.56 mg/dL (0.60-1.10); GLUCOSE 96.1 mg/dL (74-106); POTASSIUM 4.33 mmol/L (3.5-5.1); SODIUM 135.8 mmol/L (134.5-145); TOTAL PROTEIN 6.59 g/dL (6.3-8.2)
[2022-04-30] MEDS: SODIUM CHLORIDE 1,000 ML IV SCH ×3 (05:36→17:49)
[2022-04-30] MEDS: NYSTATIN ORAL SUSP PO SCH ×4 (05:36→20:14)
[2022-04-30 05:37] LABS: BLOOD UREA NITROGEN < 2.0 mg/dL (9-20)
--- NOTE | 2022-04-30 07:37 | PCM.PROG ---
Date Seen by Provider: 04/30/22 Time Seen by Provider: 07:33 Subjective: Patient feeling better. Tolerating diet. He still has tremulousness, though it is improving. He has not been taking any of his home medications. Objective: Vitals: T=97.9 F, P=71, R=18, QT=894/94, LBJ0=074 Patient is alert and in NAD. He looks much improved in 2 days time. Affect flat. HEENT: [] Neck: [] Lungs: [] Clear. CVS: []RRR. No peripheral edema. Abdomen: []Soft, nontender. Extremities: [] Neurological: []Patient still with tremor of hands, though less so. He answers questions appropriately. Skin: [] Lab/Tests/Diagnostic Imaging: [] (1) Hypokalemia: Status: Acute Code(s): E87.6 - Hypokalemia SNOMED Code(s): 94536600 Assessment: Sodium and potassium normalized. (2) Alcohol use disorder, severe, dependence: Status: Acute Code(s): F10.20 - Alcohol dependence, uncomplicated SNOMED Code(s): 506165397 Assessment: Alcohol withdrawal symptoms improved. (3) Thrombophlebitis of right upper extremity: Status: Acute Code(s): I80.8 - Phlebitis and thrombophlebitis of other sites SNOMED Code(s): 51103106430041618 (4) Nausea & vomiting: Status: Acute Code(s): R11.2 - Nausea with vomiting, unspecified SNOMED Code(s): 41807930 Assessment: Resolved;tolerating PO intake. (5) Alcohol withdrawal: Status: Acute Code(s): F10.239 - Alcohol dependence with withdrawal, unspecified SNOMED Code(s): 504798719 (6) Tobacco dependence: Status: Acute Code(s): F17.200 - Nicotine dependence, unspecified, uncomplicated SNOMED Code(s): 69293141 (7) Hypomagnesemia: Status: Acute Code(s): E83.42 - Hypomagnesemia SNOMED Code(s): 908256894 Assessment: Will replete magnesium. (8) Major depression, chronic: Status: Acute Code(s): F32.9 - Major depressive disorder, single episode, unspecified SNOMED Code(s): 219304862 Assessment: Resume effexor. Plan: Replace magnesium. Resume effexor and other home medications.
[2022-04-30] MEDS ORDERED: SODIUM CHLORIDE IV ONE ×2 (07:47→08:30)
[2022-04-30] MEDS ORDERED: MAGNESIUM SULFATE IV ONE ×2 (07:47→08:30)
[2022-04-30] MEDS: NICODERM 21 MG TD SCH (08:12)
[2022-04-30] MEDS: EFFEXOR XR PO SCH (08:12)
[2022-04-30] MEDS: NORVASC PO SCH (08:12)
[2022-04-30] MEDS: K-DUR PO SCH ×2 (08:12→17:38)
[2022-04-30] MEDS ORDERED: DESYREL PO SCH ×2 (09:00→21:00)
[2022-04-30] MEDS ORDERED: SEROQUEL PO SCH ×2 (09:00→21:00)
[2022-04-30] MEDS ORDERED: EFFEXOR XR PO SCH (09:00)
[2022-04-30] MEDS: MAG-OX PO SCH (09:19)
[2022-04-30] MEDS: COGENTIN PO SCH (09:20)
[2022-05-01] MEDS: LIBRIUM PO SCH ×2 (02:54→08:21)
[2022-05-01 05:14] VITALS: BP 121/80; TEMP 97.7
[2022-05-01] MEDS: NYSTATIN ORAL SUSP PO SCH (06:00)
[2022-05-01] MEDS: SODIUM CHLORIDE 1,000 ML IV SCH ×2 (07:21→07:22)
--- NOTE | 2022-05-01 08:05 | PCM.DC ---
Final Diagnosis: Alcohol intoxication and Dependence Alcohol withdrawal Hypomagnesemia Hypokalemia Anxiety Depression Physical Exam Appearance: Well-appearing Ill-appearing: Not Applicable Pain Distress: Mild (Right chest wall ) Eyes: Conjunctiva clear ENT: Nose normal and Other (Oral thrush ( b) Neck: Not Examined Respiratory: Airway patent, Breath sounds clear and Breath sounds equal Cardiovascular: RRR, Pulses normal and No rub GI/: Soft, Nontender and No masses Musculoskeletal: Normal strength and ROM intact Skin: Warm and Dry Neurological: Sensation intact, Motor intact, Alert, Oriented and Other (fine resting Tremor ) Psychiatric: Anxious and Depressed (1) Hypokalemia: Status: Acute Code(s): E87.6 - Hypokalemia SNOMED Code(s): 66298252 (2) Alcohol use disorder, severe, dependence: Status: Acute Code(s): F10.20 - Alcohol dependence, uncomplicated SNOMED Code(s): 734598214 (3) Thrombophlebitis of right upper extremity: Status: Acute Code(s): I80.8 - Phlebitis and thrombophlebitis of other sites SNOMED Code(s): 41627255006176467 (4) Nausea & vomiting: Status: Acute Code(s): R11.2 - Nausea with vomiting, unspecified SNOMED Code(s): 09989802 (5) Alcohol withdrawal: Status: Acute Code(s): F10.239 - Alcohol dependence with withdrawal, unspecified SNOMED Code(s): 118157787 (6) Tobacco dependence: Status: Acute Code(s): F17.200 - Nicotine dependence, unspecified, uncomplicated SNOMED Code(s): 47495887 (7) Hypomagnesemia: Status: Acute Code(s): E83.42 - Hypomagnesemia SNOMED Code(s): 521529825 (8) Major depression, chronic: Status: Acute Code(s): F32.9 - Major depressive disorder, single episode, unspecified SNOMED Code(s): 201874748 (9) Candidiasis of mouth: Status: Acute Code(s): B37.0 - Candidal stomatitis SNOMED Code(s): 19505273 (10) Right-sided chest wall pain: Status: Acute Code(s): R07.89 - Other chest pain SNOMED Code(s): 629384576 Reason for Hospitalization: Patient was admitted for Alcohol withdrawal symptoms and signs admitted to binge drinking. Stated that he ran out of his Mood medications and stopped taking Acamprosate and started Drinking. States his friends drink and gets carried away and starts drinking also. He states he has been off Alcohol in the past for 1.5 years and know what to do. He has not followed up with his counselor Prognosis/Condition at Discharge: Patient feels better after IV fluids, Librium and Ativan. withdrawal symptoms has resolved. Medications at Discharge: Ambulatory Orders Medication Instructions Recorded multivitamin (Multiple Vitamins) 1 tab PO QDAY 11/28/20 ibuprofen 600 mg tablet 600 mg PO TID PRN #90 tab 04/12/21 acamprosate 333 mg tablet,delayed 666 mg PO BID #120 tab 09/12/21 release benztropine 1 mg tablet 1 mg PO QHS #30 tab 09/12/21 hydroxyzine HCl 25 mg tablet 25 mg PO TID PRN #90 tab 09/12/21 quetiapine 100 mg tablet 50 - 100 mg PO QHS #30 tab 09/12/21 trazodone 150 mg tablet 50 - 150 mg PO QHS PRN #30 tab 09/12/21 venlafaxine 75 mg capsule,extended 75 mg PO QAM #30 cap 09/12/21 release 24 hr nicotine 10 mg inhalation 1 inh INHALATION [id number] PRN 04/29/22 cartridge (Nicotrol) amlodipine 10 mg tablet 10 mg PO QAM 04/30/22 Lab/Diagnostics: Laboratory Tests 04/28/22 04/28/22 04/28/22 10:59 10:59 15:00 WBC 4.59 RBC 3.39 L Hgb 11.7 L Hct 34.3 L MCV 101.2 H MCH 34.5 H MCHC 34.1 RDW Coeff of Venessa 14.0 Plt Count 103 L Immature Gran % (Auto) 0.2 Neut % (Auto) 84.5 H Lymph % (Auto) 7.4 L [place] % (Auto) 6.8 Eos % (Auto) 0.4 Baso % (Auto) 0.7 Neut # (Auto) 3.9 Lymph # (Auto) 0.3 L [place] # (Auto) 0.3 L Eos # (Auto) 0.0 Baso # (Auto) 0.0 Immature Gran # (Auto) 0.0 Sodium 130.5 L Potassium 3.67 Chloride 94.9 L Carbon Dioxide 17.8 L Anion Gap 21.47 BUN 4.9 L Creatinine 0.68 Estimated GFR (MDRD) 137.00 BUN/Creatinine Ratio 7.20 Glucose 106.2 H Calcium 8.86 Magnesium Total Bilirubin 1.52 H AST 100.1 H ALT 55.2 H Alkaline Phosphatase 87.2 Total Protein 7.25 Albumin 4.65 Globulin 2.60 Albumin/Globulin Ratio 1.78 Urine Opiates Screen Ur Oxycodone Screen Urine Methadone Screen Ur Propoxyphene Screen Ur Barbiturates Screen U Tricyclic Antidepress Ur Phencyclidine Scrn Ur Amphetamine Screen U Methamphetamines Scrn U Benzodiazepines Scrn Urine Cocaine Screen U Cannabinoids Screen Plasma/Serum Alcohol < 10.0 SARS CoV-2 RNA Rapid GERA Negative 04/28/22 04/29/22 04/29/22 17:05 04:30 04:30 WBC 2.61 L RBC 2.98 L Hgb 10.3 L Hct 29.9 L MCV 100.3 H MCH 34.6 H MCHC 34.4 RDW Coeff of Venessa 13.7 Plt Count 73 L Immature Gran % (Auto) 0.4 Neut % (Auto) 58.6 Lymph % (Auto) 26.8 [place] % (Auto) 11.1 H Eos % (Auto) 2.3 Baso % (Auto) 0.8 Neut # (Auto) 1.5 L Lymph # (Auto) 0.7 [place] # (Auto) 0.3 L Eos # (Auto) 0.1 Baso # (Auto) 0.0 Immature Gran # (Auto) 0.0 Sodium 134.3 L Potassium 2.95 L Chloride 104.3 Carbon Dioxide 22.0 Anion Gap 10.95 BUN 2.3 L Creatinine 0.56 L Estimated GFR (MDRD) 171.00 BUN/Creatinine Ratio 4.10 Glucose 109.7 H Calcium 7.74 L Magnesium Total Bilirubin 0.79 AST 112.5 H ALT 43.9 Alkaline Phosphatase 65.2 Total Protein 5.96 L Albumin 3.38 L Globulin 2.58 Albumin/Globulin Ratio 1.31 Urine Opiates Screen Negative Ur Oxycodone Screen Negative Urine Methadone Screen Negative Ur Propoxyphene Screen Negative Ur Barbiturates Screen Negative U Tricyclic Antidepress Negative Ur Phencyclidine Scrn Negative Ur Amphetamine Screen Negative U Methamphetamines Scrn Negative U Benzodiazepines Scrn Positive H Urine Cocaine Screen Negative U Cannabinoids Screen Negative Plasma/Serum Alcohol SARS CoV-2 RNA Rapid GERA 04/30/22 04/30/22 05/01/22 04:41 04:41 04:39 WBC 3.38 L RBC 3.27 L Hgb 11.2 L Hct 33.4 L MCV 102.1 H MCH 34.3 H MCHC 33.5 RDW Coeff of Venessa 13.3 Plt Count 90 L Immature Gran % (Auto) 0.3 Neut % (Auto) 57.1 Lymph % (Auto) 26.9 [place] % (Auto) 12.1 H Eos % (Auto) 3.0 Baso % (Auto) 0.6 Neut # (Auto) 1.9 L Lymph # (Auto) 0.9 [place] # (Auto) 0.4 Eos # (Auto) 0.1 Baso # (Auto) 0.0 Immature Gran # (Auto) 0.0 Sodium 135.8 Potassium 4.33 Chloride 106.1 Carbon Dioxide 21.7 L Anion Gap 12.33 BUN < 2.0 L Creatinine 0.56 L Estimated GFR (MDRD) 171.00 BUN/Creatinine Ratio 3.57 Glucose 96.1 Calcium 8.41 Magnesium 1.30 L 2.02 Total Bilirubin 0.57 AST 83.5 H D ALT 49.7 Alkaline Phosphatase 82.2 Total Protein 6.59 Albumin 3.97 Globulin 2.62 Albumin/Globulin Ratio 1.51 Urine Opiates Screen Ur Oxycodone Screen Urine Methadone Screen Ur Propoxyphene Screen Ur Barbiturates Screen U Tricyclic Antidepress Ur Phencyclidine Scrn Ur Amphetamine Screen U Methamphetamines Scrn U Benzodiazepines Scrn Urine Cocaine Screen U Cannabinoids Screen Plasma/Serum Alcohol SARS CoV-2 RNA Rapid GERA Education Provided to Patient and Family: About need to fllow up with Counselor and take his medications. Avoid Alcohol Follow-ups: With already scheduled PCP and Counselor Discharge Disposition: Home Hospital Course: Responded well to Inpatient Alcohol withdrawal protocol treatment Electrolytes were replaced. Oral candidiasis was treated with nystatin and is better today Plan: Discharge home Refill Medications Encourage follow up with PCP and counsellor Consider Alcohol rehabilitation.
[2022-05-01] MEDS: MAG-OX PO SCH (08:14)
[2022-05-01] MEDS: COGENTIN PO SCH (08:14)
[2022-05-01] MEDS: EFFEXOR XR PO SCH (08:14)
[2022-05-01] MEDS: NICODERM 21 MG TD SCH (08:14)
[2022-05-01] MEDS: K-DUR PO SCH (08:15)
[2022-05-01] MEDS: NORVASC PO SCH (08:15)
== END 2022-05-01 10:25 | disposition home or self-care (01) | DRG 641 ==
LOC: ED 10:26 → MEDSURG A 10:26
PROVIDERS: ADMIT Surgery; ATTEND Internal Medicine Geriatric Medicine
DX: R11.2 Nausea with vomiting, unspecified; E87.6 Hypokalemia; Z79.899 Other long term (current) drug therapy; Y90.5 Blood alcohol level of 100-119 mg/100 ml; B37.0 Candidal stomatitis; F17.200 Nicotine dependence, unspecified, uncomplicated; Z51.81 Encounter for therapeutic drug level monitoring; F32.9 Major depressive disorder, single episode, unspecified; I80.8 Phlebitis and thrombophlebitis of other sites; R07.89 Other chest pain; E83.42 Hypomagnesemia; Z20.822 Contact with and (suspected) exposure to COVID-19; F10.20 Alcohol dependence, uncomplicated; F10.239 Alcohol dependence with withdrawal, unspecified